=== PATIENT | female | born 1990 | race Caucasian/White ===

== ENCOUNTER 2016-07-24 01:13 | Emergency (ER) | payer OTHER ==
[2016-07-24 02:25] LABS: BILIRUBIN NEGATIVE (NEGATIVE); BLOOD TRACE-INTACT Ery/uL (NEGATIVE); CLARITY CLEAR (CLEAR); COLOR YELLOW (YELLOW); GLUCOSE (U) NORMAL (NORMAL); KETONE (U) NEGATIVE (NEGATIVE); LEUKOCYTES NEGATIVE Leu/uL (NEGATIVE); NITRITE NEGATIVE (NEGATIVE); PROTEIN NEGATIVE (NEGATIVE); UROBILINOGEN 0.2 mg/dL (0.2-1.0); pH 5.5 (5.0-9.0)
[2016-07-24 02:29] LABS: BASOPHIL 0.5 % (0-2); EOSINOPHIL 1.1 % (0-5); HCT 41.5 % (37.0-47.0); HGB 13.1 g/dl (12.5-16.0); LYMPHOCYTE 37.7 % (15-48); MCH 28.2 pg (25.0-31.0); MCHC 31.6 g/dL (32.0-36.0); MCV 89.2 fL (78.0-100.0); MONOCYTE 7.6 % (0-12); MPV 9.2 fL (6.0-9.5); NEUTROPHIL 53.1 % (41-80); PLT 326 K/uL (150-400); RBC 4.65 M/uL (4.20-5.40); RDW 14.9 % (11.5-14.0); WBC 11.6 K/uL (4.0-10.5)
[2016-07-24 02:58] LABS: BACTERIA TRACE; CALCIUM OXALATE CRYSTALS TRACE; URINARY RBC RARE; URINARY WBC RARE
[2016-07-24 03:09] LABS: PRO-BNP 82 pg/mL (0-125); TROPONIN T < 0.010 ng/mL
[2016-07-24 03:14] LABS: ALBUMIN 3.4 g/dL (3.5-5.0); BILIRUBIN - TOTAL 0.2 mg/dL (0.1-1.0); CREATININE 0.6 mg/dL (0.5-1.0); GLOBULIN (CALCULATION) 4.1 g/dL (2.2-4.2); POTASSIUM 3.8 mmol/L (3.5-5.1); TOTAL PROTEIN 7.5 g/dL (6.4-8.3)
[2016-07-24] MEDS ORDERED: VENTOLIN HFA IN18 GM INH (17:33)
[2017-01-24] MEDS ORDERED: FEOSOL325 MG PO (17:25)
[2017-01-24] MEDS ORDERED: VICTOZA 2-0.6 MG/0.1 SC (17:25)
[2017-01-24] MEDS ORDERED: ZANTAC150 MG PO (17:25)
[2017-01-24] MEDS ORDERED: DEMADEX20 MG PO (17:31)
[2017-01-24] MEDS ORDERED: K-DUR20 MEQ PO (17:31)
[2017-01-24] MEDS ORDERED: PAXIL40 MG PO (17:32)
[2017-01-24] MEDS ORDERED: COREG25 MG PO (17:32)
[2017-01-24] MEDS ORDERED: ENTRESTO 24 MG1 EACH PO (17:32)
[2017-01-24] MEDS ORDERED: VENTOLIN (2.5 MG/3 M INH (17:33)
[2017-01-24] MEDS ORDERED: SINGULAIR10 MG PO (17:33)
[2017-01-24] MEDS ORDERED: PREDNISONE (17:33)
== END 2016-07-24 04:13 | disposition home or self-care (01) ==
LOC: FER 01:13
PROVIDERS: Emergency Medicine Emergency Medical Services
DX: J20.9 Acute bronchitis, unspecified (principal); I11.0 Hypertensive heart disease with heart failure; Z88.0 Allergy status to penicillin; Z88.1 Allergy status to other antibiotic agents; Z88.8 Allergy status to other drugs, medicaments and biological substances; Z95.810 Presence of automatic (implantable) cardiac defibrillator
CPT/HCPCS: 36415; 71020; 80053; 81001; 83880; 84484; 85025; 85379; 93005; J1940; J2405; J2930

== ENCOUNTER 2020-04-29 19:36 | Emergency (ER) | payer OTHER ==
[~2020-04-29 19:36] MED LIST: ALDACTONE25 MG PO; ATIVAN1 MG PO; BASAGLAR K100 UNIT/1 SC; BENTYL10 MG PO; COREG25 MG PO; COZAAR 25MG TAB25 MG PO; DEMADEX20 MG PO; ENTRESTO 24 MG1 EACH PO; FEOSOL325 MG PO; HYDROCODON-ACE1 EAC4 PO; K-DUR20 MEQ PO; MAG-OXIDE 400M400 MG PO; METFORMIN HCL500 MG PO; MEXILETINE HCL150 M1 PO; NAPROXEN500 MG PO; PAXIL40 MG PO; PERCOCET 5-3251 EACH PO; PREDNISONE; SINGULAIR10 MG PO; TOPROL XL 50 MG50 MG PO; VENTOLIN (2.5 MG/3 M INH; VENTOLIN HFA IN18 GM INH; VICTOZA 2-0.6 MG/0.1 SC; ZANTAC150 MG PO
[2020-04-29 20:08] LABS: BASOPHIL 0.4 % (0-2); EOSINOPHIL 1.8 % (0-5); HCT 42.9 % (37.0-47.0); HGB 13.6 g/dl (12.5-16.0); LYMPHOCYTE 30.7 % (15-48); MCH 27.8 pg (25.0-31.0); MCHC 31.7 g/dL (32.0-36.0); MCV 87.6 fL (78.0-100.0); MONOCYTE 6.1 % (0-12); MPV 10.2 fL (6.0-9.5); NEUTROPHIL 60.8 % (41-80); NRBC 0; PLT 382 K/uL (150-400); RDW 12.5 % (11.5-14.0); WBC 11.2 K/uL (4.0-10.5)
[2020-04-29 20:20] LABS: ALBUMIN 3.5 g/dL (3.4-5.0); BILIRUBIN - TOTAL 0.3 mg/dL (0.2-1.0); CREATININE 0.81 mg/dL (0.51-0.95); GLOBULIN (CALCULATION) 4.6 g/dL; POTASSIUM 3.8 mmol/L (3.5-5.1); TOTAL PROTEIN 8.1 g/dL (6.4-8.2)
[2020-04-29 20:38] LABS: INR 1.3 (0.9-1.2); PROTHROMBIN TIME 15.4 SECONDS (11.4-13.6); PTT 31.6 SECONDS (22.2-34.7)
[2020-04-30] MEDS ORDERED: ATIVAN1 MG PO (00:07)
[2020-04-30] MEDS ORDERED: PAXIL40 MG PO (00:07)
== END 2020-04-30 01:00 | disposition home or self-care (01) ==
LOC: FER 19:36
PROVIDERS: Emergency Medicine Emergency Medical Services
DX: R07.89 Other chest pain (principal); F41.9 Anxiety disorder, unspecified; F32.9 Major depressive disorder, single episode, unspecified; I11.0 Hypertensive heart disease with heart failure; I50.9 Heart failure, unspecified; E11.9 Type 2 diabetes mellitus without complications; Z88.0 Allergy status to penicillin; Z88.8 Allergy status to other drugs, medicaments and biological substances
CPT/HCPCS: 36415; 71045; 80053; 83690; 83880; 84484; 85025; 85610; 85730; 93005; J2060

== ENCOUNTER 2020-06-21 23:10 | Emergency (ER) | payer OTHER ==
[2020-06-21 23:47] LABS: BASOPHIL 0.4 % (0-2); EOSINOPHIL 3.4 % (0-5); HCT 43.4 % (37.0-47.0); HGB 13.6 g/dl (12.5-16.0); MCH 27.2 pg (25.0-31.0); MCHC 31.3 g/dL (32.0-36.0); MCV 86.8 fL (78.0-100.0); MONOCYTE 5.3 % (0-12); MPV 9.8 fL (6.0-9.5); NEUTROPHIL 57.6 % (41-80); NRBC 0; PLT 329 K/uL (150-400); RDW 14.4 % (11.5-14.0)
[2020-06-21 23:58] LABS: INR 1.2 (0.9-1.2); PROTHROMBIN TIME 14.4 SECONDS (11.4-13.6); PTT 31.5 SECONDS (22.2-34.7)
[2020-06-22 00:04] LABS: BILIRUBIN - TOTAL 0.2 mg/dL (0.2-1.0); BUN/CREAT RATIO (CALC) 25.9 RATIO; CREATININE 0.58 mg/dL (0.51-0.95); GLOBULIN (CALCULATION) 5.2 g/dL; MAGNESIUM 1.6 mg/dL (1.8-2.4); POTASSIUM 3.4 mmol/L (3.5-5.1); TOTAL PROTEIN 8.2 g/dL (6.4-8.2)
[2020-06-22 00:21] LABS: BILIRUBIN NEGATIVE (NEGATIVE); BLOOD NEGATIVE Ery/uL (NEGATIVE); CLARITY CLEAR (CLEAR); COLOR YELLOW (YELLOW); GLUCOSE (U) NORMAL (NORMAL); LEUKOCYTES NEGATIVE Leu/uL (NEGATIVE); NITRITE NEGATIVE (NEGATIVE); PROTEIN NEGATIVE (NEGATIVE); SPECIFIC GRAVITY 1.015 (1.001-1.030); UROBILINOGEN 0.2 mg/dL (0.2-1.0)
[2020-06-22 00:38] LABS: CKMB <0.5 ng/mL (0.0-3.6); PRO-BNP 80 pg/mL (<125)
== END 2020-06-22 03:28 | disposition home or self-care (01) ==
LOC: FER 23:10
PROVIDERS: Emergency Medicine
DX: R07.89 Other chest pain (principal); E87.6 Hypokalemia; E83.42 Hypomagnesemia; I48.91 Unspecified atrial fibrillation; I11.0 Hypertensive heart disease with heart failure; I50.9 Heart failure, unspecified; E11.9 Type 2 diabetes mellitus without complications; F17.200 Nicotine dependence, unspecified, uncomplicated; Z88.0 Allergy status to penicillin; Z88.2 Allergy status to sulfonamides; Z88.8 Allergy status to other drugs, medicaments and biological substances; Z88.1 Allergy status to other antibiotic agents; Z79.4 Long term (current) use of insulin; Z79.899 Other long term (current) drug therapy
CPT/HCPCS: 36415; 71045; 80053; 81003; 82553; 83735; 83874; 83880; 84484; 85025; 85610; 85730; 93005; J2060; J3475

== ENCOUNTER 2020-07-29 23:54 | Emergency (ER) | payer OTHER ==
[2020-07-30 00:39] LABS: BUN/CREAT RATIO (CALC) 23.1 RATIO; CREATININE 0.65 mg/dL (0.51-0.95); POTASSIUM 3.3 mmol/L (3.5-5.1)
== END 2020-07-30 04:15 | disposition home or self-care (01) ==
LOC: FER 23:54
PROVIDERS: Emergency Medicine
DX: R00.2 Palpitations (principal); E87.6 Hypokalemia; R94.31 Abnormal electrocardiogram [ECG] [EKG]; I11.0 Hypertensive heart disease with heart failure; I50.9 Heart failure, unspecified; E11.9 Type 2 diabetes mellitus without complications; I48.91 Unspecified atrial fibrillation; Z88.0 Allergy status to penicillin
CPT/HCPCS: 36415; 80048; 83735; 84484; 93005

== ENCOUNTER 2020-08-05 19:13 | Emergency (ER) | payer OTHER ==
[2020-08-05 20:01] LABS: BASOPHIL 0.5 % (0-2); EOSINOPHIL 4.4 % (0-5); HCT 41.8 % (37.0-47.0); HGB 13.2 g/dl (12.5-16.0); LYMPHOCYTE 31.9 % (15-48); MCH 28.4 pg (25.0-31.0); MCHC 31.6 g/dL (32.0-36.0); MCV 90.1 fL (78.0-100.0); MONOCYTE 5.7 % (0-12); MPV 9.6 fL (6.0-9.5); NEUTROPHIL 56.8 % (41-80); NRBC 0; PLT 371 K/uL (150-400); RBC 4.64 M/uL (4.20-5.40); WBC 11.9 K/uL (4.0-10.5)
[2020-08-05 20:14] LABS: INR 1.22 (0.9-1.2); PROTHROMBIN TIME 14.6 SECONDS (11.4-13.6)
[2020-08-05 20:17] LABS: ALBUMIN 3.2 g/dL (3.4-5.0); BILIRUBIN - TOTAL 0.2 mg/dL (0.2-1.0); BUN/CREAT RATIO (CALC) 24.6 RATIO; CREATININE 0.69 mg/dL (0.51-0.95); GLOBULIN (CALCULATION) 4.7 g/dL; PHOSPHORUS 3.9 mg/dL (2.6-4.7); POTASSIUM 3.6 mmol/L (3.5-5.1); TOTAL PROTEIN 7.9 g/dL (6.4-8.2)
[2020-08-05 20:23] LABS: PRO-BNP 63 pg/mL (<125)
[2020-08-05] MEDS ORDERED: PHENERGAN25 M1 PO (21:25)
[2020-08-05] MEDS ORDERED: ATIVAN1 M1 PO (21:25)
[2020-08-05] MEDS ORDERED: PAXIL40 MG PO (21:32)
== END 2020-08-05 21:45 | disposition home or self-care (01) ==
LOC: FER 19:13
PROVIDERS: Emergency Medicine
DX: R42 Dizziness and giddiness (principal); R00.2 Palpitations; Z88.0 Allergy status to penicillin
CPT/HCPCS: 36415; 71045; 80053; 83735; 83880; 84100; 84484; 85025; 85610; 85730; 93005; J2060; J2550

== ENCOUNTER 2020-08-09 00:23 | Emergency (ER) | payer OTHER ==
[~2020-08-09 00:23] MED LIST changes: +ATIVAN1 M1 PO; +PHENERGAN25 M1 PO
[2020-08-09 01:04] LABS: BASOPHIL 0.4 % (0-2); EOSINOPHIL 4.3 % (0-5); HCT 41.9 % (37.0-47.0); HGB 13.4 g/dl (12.5-16.0); LYMPHOCYTE 30.6 % (15-48); MCH 28.6 pg (25.0-31.0); MCV 89.5 fL (78.0-100.0); MONOCYTE 5.1 % (0-12); MPV 9.6 fL (6.0-9.5); NRBC 0; PLT 350 K/uL (150-400); RBC 4.68 M/uL (4.20-5.40); RDW 14.7 % (11.5-14.0); WBC 12.8 K/uL (4.0-10.5)
[2020-08-09 01:20] LABS: BILIRUBIN - TOTAL 0.2 mg/dL (0.2-1.0); BUN/CREAT RATIO (CALC) 32.9 RATIO; CREATININE 0.7 mg/dL (0.51-0.95); GLOBULIN (CALCULATION) 4.8 g/dL; POTASSIUM 4.1 mmol/L (3.5-5.1); TOTAL PROTEIN 7.8 g/dL (6.4-8.2)
== END 2020-08-09 02:09 | disposition home or self-care (01) ==
LOC: FER 00:23
PROVIDERS: Emergency Medicine
DX: F41.9 Anxiety disorder, unspecified (principal); R07.89 Other chest pain; Z88.0 Allergy status to penicillin
CPT/HCPCS: 36415; 80053; 84484; 85025; 85730; 93005; J2060

== ENCOUNTER 2020-08-09 19:45 | Emergency (ER) | payer OTHER ==
[2020-08-09 20:38] LABS: BASOPHIL 0.5 % (0-2); EOSINOPHIL 4.2 % (0-5); HCT 40.5 % (37.0-47.0); HGB 12.8 g/dl (12.5-16.0); LYMPHOCYTE 25.4 % (15-48); MCH 28.4 pg (25.0-31.0); MCHC 31.6 g/dL (32.0-36.0); MCV 89.8 fL (78.0-100.0); MONOCYTE 5.8 % (0-12); MPV 9.6 fL (6.0-9.5); NEUTROPHIL 63.7 % (41-80); NRBC 0; PLT 352 K/uL (150-400); RBC 4.51 M/uL (4.20-5.40); RDW 14.8 % (11.5-14.0); WBC 13.9 K/uL (4.0-10.5)
[2020-08-09 20:57] LABS: ALBUMIN 2.8 g/dL (3.4-5.0); BILIRUBIN - TOTAL 0.2 mg/dL (0.2-1.0); BUN/CREAT RATIO (CALC) 31.2 RATIO; CREATININE 0.8 mg/dL (0.51-0.95); GLOBULIN (CALCULATION) 4.5 g/dL; POTASSIUM 4.2 mmol/L (3.5-5.1); TOTAL PROTEIN 7.3 g/dL (6.4-8.2)
[2020-08-09 21:07] LABS: PRO-BNP 50 pg/mL (<125)
== END 2020-08-09 23:20 | disposition home or self-care (01) ==
LOC: FER 19:45
PROVIDERS: Emergency Medicine Emergency Medical Services
DX: F41.9 Anxiety disorder, unspecified (principal); R07.89 Other chest pain; I50.9 Heart failure, unspecified; Z88.0 Allergy status to penicillin; Z88.1 Allergy status to other antibiotic agents; Z79.899 Other long term (current) drug therapy
CPT/HCPCS: 36415; 71045; 80053; 82550; 83880; 84484; 85025; 93005

== ENCOUNTER 2020-11-22 23:51 | Emergency (ER) | payer OTHER ==
[2020-11-23 00:22] LABS: BASOPHIL 0.3 % (0-2); EOSINOPHIL 3.6 % (0-5); HCT 41.2 % (37.0-47.0); HGB 13.2 g/dl (12.5-16.0); LYMPHOCYTE 33.9 % (15-48); MCH 29.1 pg (25.0-31.0); MCV 90.9 fL (78.0-100.0); MONOCYTE 6.6 % (0-12); NRBC 0; PLT 312 K/uL (150-400); RBC 4.53 M/uL (4.20-5.40); RDW 13.2 % (11.5-14.0); WBC 11.9 K/uL (4.0-10.5)
[2020-11-23 00:26] LABS: NEUTROPHIL 55.3 % (41-80)
[2020-11-23 00:51] LABS: ALBUMIN 3.2 g/dL (3.4-5.0); BILIRUBIN - TOTAL 0.4 mg/dL (0.2-1.0); BUN/CREAT RATIO (CALC) 16.9 RATIO; CREATININE 0.83 mg/dL (0.51-0.95); GLOBULIN (CALCULATION) 4.1 g/dL; TOTAL PROTEIN 7.3 g/dL (6.4-8.2)
== END 2020-11-23 04:20 | disposition home or self-care (01) ==
LOC: FER 23:51
PROVIDERS: Emergency Medicine
DX: R07.89 Other chest pain (principal); I50.9 Heart failure, unspecified; I48.91 Unspecified atrial fibrillation; F17.200 Nicotine dependence, unspecified, uncomplicated; Z79.899 Other long term (current) drug therapy; Z95.810 Presence of automatic (implantable) cardiac defibrillator
CPT/HCPCS: 36415; 71045; 80053; 84484; 85025; 93005

== ENCOUNTER 2020-12-08 20:11 | Inpatient (IN) | payer OTHER ==
[~2020-12-08] VITALS: Ht 167.6 cm; Wt 144.2 kg
[2020-12-08 22:04] LABS: BASOPHIL 0.2 % (0-2); EOSINOPHIL 0.9 % (0-5); HCT 39.4 % (37.0-47.0); HGB 12.6 g/dl (12.5-16.0); LYMPHOCYTE 38.4 % (15-48); MCH 28.9 pg (25.0-31.0); MCV 90.4 fL (78.0-100.0); MONOCYTE 6.6 % (0-12); MPV 9.9 fL (6.0-9.5); NRBC 0; PLT 196 K/uL (150-400); RBC 4.36 M/uL (4.20-5.40); RDW 13.4 % (11.5-14.0); WBC 4.7 K/uL (4.0-10.5)
[2020-12-08 22:06] LABS: NEUTROPHIL 53.5 % (41-80)
[2020-12-08 22:40] LABS: ALBUMIN 3.1 g/dL (3.4-5.0); BILIRUBIN - TOTAL 0.3 mg/dL (0.2-1.0); BUN/CREAT RATIO (CALC) 11.1 RATIO; CREATININE 0.99 mg/dL (0.51-0.95); GLOBULIN (CALCULATION) 4.6 g/dL; POTASSIUM 3.1 mmol/L (3.5-5.1); TOTAL PROTEIN 7.7 g/dL (6.4-8.2)
[2020-12-08 22:41] LABS: PRO-BNP 130 pg/mL (<125)
--- NOTE | 2020-12-09 02:19 | NUR ---
PT WAS BROUGHT UP TO FLOOR BY ER NURSE WITH S/O A VISITOR. PT. TOLD ER NURSE THAT SHE WOULD NOT STAY IF HER S/O COULD NOT STAY, SO ER ALLOWED HIM TO COME UP. PT. WAS EDUCATION BY MS RN THAT HE COULD NOT LEAVE THE ROOM AND IF HE LEFT HE COULD NOT COME BACK PER VISITATION POLICY FOR COVID + PTS. ER,RN
[2020-12-09] MEDS ORDERED: AMIODARONE HCL200 MG PO (02:25)
[2020-12-09] MEDS ORDERED: TORSEMIDE20 MG PO ×2 (02:26)
[2020-12-09] MEDS ORDERED: LOPRESSOR50 MG PO (02:27)
[2020-12-09] MEDS ORDERED: MAG-OXIDE 400M400 MG PO (02:28)
[2020-12-09] MEDS ORDERED: PAXIL40 MG PO (02:28)
[2020-12-09] MEDS ORDERED: FEOSOL325 MG PO (02:28)
[2020-12-09 02:29] LABS: INFLUENZA A NAA NEGATIVE (NEGATIVE)
[2020-12-09] MEDS ORDERED: K-DUR20 MEQ PO (02:29)
[2020-12-09] MEDS ORDERED: ALDACTONE25 MG PO (02:29)
[2020-12-09] MEDS ORDERED: HUMALOG100 UNIT/3 SC (02:30)
[2020-12-09] MEDS ORDERED: DIOVAN80 MG PO (02:30)
[2020-12-09] MEDS ORDERED: PROAIR HFA8.5 GM INH (02:31)
[2020-12-09 02:35] LABS: CORONAVIRUS 2019 SARS-COV-2 POSITIVE (NEGATIVE)
[2020-12-10 07:47] LABS: BASOPHIL 0 % (0-2); EOSINOPHIL 0 % (0-5); HCT 43.1 % (37.0-47.0); HGB 13.7 g/dl (12.5-16.0); LYMPHOCYTE 15.8 % (15-48); MCHC 31.8 g/dL (32.0-36.0); MCV 91.3 fL (78.0-100.0); MONOCYTE 7.8 % (0-12); MPV 9.6 fL (6.0-9.5); NEUTROPHIL 75.8 % (41-80); NRBC 0; PLT 232 K/uL (150-400); RBC 4.72 M/uL (4.20-5.40); RDW 13.2 % (11.5-14.0); WBC 4.7 K/uL (4.0-10.5)
[2020-12-10 08:25] LABS: BILIRUBIN - TOTAL 0.4 mg/dL (0.2-1.0); BUN/CREAT RATIO (CALC) 16.2 RATIO; CREATININE 0.68 mg/dL (0.51-0.95); GLOBULIN (CALCULATION) 4.9 g/dL; MAGNESIUM 1.9 mg/dL (1.8-2.4); POTASSIUM 3.5 mmol/L (3.5-5.1); TOTAL PROTEIN 7.9 g/dL (6.4-8.2)
[2020-12-12 06:16] LABS: BASOPHIL 0.7 % (0-2); EOSINOPHIL 0 % (0-5); HCT 45.8 % (37.0-47.0); HGB 14.4 g/dl (12.5-16.0); MCH 28.7 pg (25.0-31.0); MCHC 31.4 g/dL (32.0-36.0); MCV 91.4 fL (78.0-100.0); MONOCYTE 6.9 % (0-12); MPV 10.1 fL (6.0-9.5); NEUTROPHIL 55.2 % (41-80); NRBC 0; PLT 272 K/uL (150-400); RBC 5.01 M/uL (4.20-5.40); RDW 13.2 % (11.5-14.0); WBC 4.2 K/uL (4.0-10.5)
[2020-12-12 06:23] LABS: LYMPHOCYTE 35.5 % (15-48)
[2020-12-12 06:33] LABS: BUN/CREAT RATIO (CALC) 22.7 RATIO; CREATININE 0.88 mg/dL (0.51-0.95); MAGNESIUM 2.2 mg/dL (1.8-2.4); POTASSIUM 3.7 mmol/L (3.5-5.1)
--- NOTE | 2020-12-12 13:59 | NUR ---
ADVISED BY DR. OBANDO THAT PT. WILL NEED O2 4 LITERS OXIMIZER. PT. WILL D/C HOME TODAY. DR. OBANDO ORDERED PT. TO HAVE A PULSEOX. NURSE TO GIVE PULSE OX TO PT. SHE IS COVID POS.
[2020-12-12] MEDS ORDERED: ATROVENT HFA12.9 GM INH (14:48)
[2020-12-12] MEDS ORDERED: DEXAMETHASONE 2M2 MG PO ×2 (14:48→14:51)
[2020-12-12] MEDS ORDERED: PROVENTIL HFA6.7 GM INH (14:48)
== END 2020-12-12 15:35 | disposition home or self-care (01) | DRG 177 ==
LOC: FER 20:11 → FMS 12-09 00:46
PROVIDERS: Emergency Medicine Emergency Medical Services; Nurse Practitioner; ADMIT Internal Medicine
PROC: XW033E5 Introduction of Remdesivir Anti-infective into Peripheral Vein, Percutaneous Approach, New Technology Group 5 (ICD-10-PCS; principal; 2020-12-09)
PROC: 8E0ZXY6 Isolation (ICD-10-PCS; 2020-12-09)
DX: U07.1 COVID-19 (principal); J12.82 Pneumonia due to coronavirus disease 2019; J96.01 Acute respiratory failure with hypoxia; J15.9 Unspecified bacterial pneumonia; I50.22 Chronic systolic (congestive) heart failure; Z68.43 Body mass index [BMI] 50.0-59.9, adult; I42.8 Other cardiomyopathies; I11.0 Hypertensive heart disease with heart failure; G47.33 Obstructive sleep apnea (adult) (pediatric); E66.01 Morbid (severe) obesity due to excess calories; E11.9 Type 2 diabetes mellitus without complications; K21.9 Gastro-esophageal reflux disease without esophagitis; F41.9 Anxiety disorder, unspecified; F32.9 Major depressive disorder, single episode, unspecified; Z99.81 Dependence on supplemental oxygen; Z95.810 Presence of automatic (implantable) cardiac defibrillator; Z79.899 Other long term (current) drug therapy; Z88.0 Allergy status to penicillin; Z88.2 Allergy status to sulfonamides; Z88.1 Allergy status to other antibiotic agents; Z88.8 Allergy status to other drugs, medicaments and biological substances; Z98.890 Other specified postprocedural states; Z87.891 Personal history of nicotine dependence
CPT/HCPCS: 36415; 36600; 71045; 71275; 80048; 80053; 82803; 82962; 83605; 83735; 83880; 84484; 85025; 85379; 87040; 93005; 94010; 94640; 94760; 94762; C9113; C9399; J0456; J0692; J0696; J1100; J1650; J7030; J7050; Q9967; U0002

== ENCOUNTER 2020-12-28 23:46 | Emergency (ER) | payer OTHER ==
[~2020-12-28 23:46] MED LIST changes: +AMIODARONE HCL200 MG PO; +ATROVENT HFA12.9 GM INH; +DEXAMETHASONE 2M2 MG PO; +DIOVAN80 MG PO; +HUMALOG100 UNIT/3 SC; +LOPRESSOR50 MG PO; +PROAIR HFA8.5 GM INH; +PROVENTIL HFA6.7 GM INH; +TORSEMIDE20 MG PO
[2020-12-29 01:11] LABS: BILIRUBIN NEGATIVE (NEGATIVE); BLOOD NEGATIVE Ery/uL (NEGATIVE); CLARITY CLEAR (CLEAR); COLOR YELLOW (YELLOW); GLUCOSE (U) NORMAL (NORMAL); LEUKOCYTES NEGATIVE Leu/uL (NEGATIVE); NITRITE NEGATIVE (NEGATIVE); PROTEIN NEGATIVE (NEGATIVE); UROBILINOGEN 0.2 mg/dL (0.2-1.0)
[2020-12-29 01:13] LABS: BASOPHIL 0.3 % (0-2); EOSINOPHIL 5.3 % (0-5); HCT 37.1 % (37.0-47.0); LYMPHOCYTE 37.3 % (15-48); MCH 30.1 pg (25.0-31.0); MCHC 32.3 g/dL (32.0-36.0); MONOCYTE 6.7 % (0-12); MPV 10.9 fL (6.0-9.5); NEUTROPHIL 50.2 % (41-80); NRBC 0; PLT 263 K/uL (150-400); RBC 3.99 M/uL (4.20-5.40); RDW 14.6 % (11.5-14.0); WBC 9.1 K/uL (4.0-10.5)
[2020-12-29 01:47] LABS: BILIRUBIN - TOTAL 0.4 mg/dL (0.2-1.0); BUN/CREAT RATIO (CALC) 18.3 RATIO; C-REACTIVE PROTEIN 1.2 mg/dL (<=0.90); CREATININE 0.93 mg/dL (0.51-0.95); GLOBULIN (CALCULATION) 3.8 g/dL; MAGNESIUM 2.3 mg/dL (1.8-2.4); TOTAL PROTEIN 6.8 g/dL (6.4-8.2)
== END 2020-12-29 08:15 | disposition home or self-care (01) ==
LOC: FER 23:46
PROVIDERS: Emergency Medicine
DX: R07.89 Other chest pain (principal); R00.2 Palpitations; I50.9 Heart failure, unspecified; Z88.0 Allergy status to penicillin; Z88.8 Allergy status to other drugs, medicaments and biological substances
CPT/HCPCS: 36415; 71045; 80053; 81003; 82728; 83615; 83735; 83880; 84145; 84484; 85025; 85379; 86140

== ENCOUNTER 2021-11-02 16:40 | Emergency (ER) | payer OTHER | END 2021-11-02 17:20 | disposition home or self-care (01) | LOC: FER 16:40 | DX: U07.1 COVID-19 (principal); J95.850 Mechanical complication of respirator; I11.0 Hypertensive heart disease with heart failure; I50.9 Heart failure, unspecified; E11.9 Type 2 diabetes mellitus without complications; G47.33 Obstructive sleep apnea (adult) (pediatric); E66.9 Obesity, unspecified; Z28.310 Unvaccinated for COVID-19; Z79.899 Other long term (current) drug therapy; Z88.0 Allergy status to penicillin; Z88.1 Allergy status to other antibiotic agents; Z88.2 Allergy status to sulfonamides | CPT/HCPCS: 99284 ==